=== PATIENT | female | born 1985 | race Caucasian/White ===

== ENCOUNTER 2018-09-10 17:21 | Outpatient (CLI) | payer OTHER | END 2018-09-10 17:27 | disposition home or self-care (01) | LOC: LAB 17:21 | DX: D68.0 Von Willebrand disease (principal); D50.0 Iron deficiency anemia secondary to blood loss (chronic); E44.1 Mild protein-calorie malnutrition; D51.1 Vitamin B12 deficiency anemia due to selective vitamin B12 malabsorption with proteinuria; D51.3 Other dietary vitamin B12 deficiency anemia; D68.8 Other specified coagulation defects; N93.8 Other specified abnormal uterine and vaginal bleeding; R94.5 Abnormal results of liver function studies; D50.8 Other iron deficiency anemias; D51.8 Other vitamin B12 deficiency anemias; I10 Essential (primary) hypertension ==

== ENCOUNTER → 2019-01-17 07:00 | Outpatient (CLI) | payer OTHER | END | disposition home or self-care (01) | LOC: LAB 07:00 | DX: D68.0 Von Willebrand disease (principal); D50.0 Iron deficiency anemia secondary to blood loss (chronic); E44.1 Mild protein-calorie malnutrition; D51.1 Vitamin B12 deficiency anemia due to selective vitamin B12 malabsorption with proteinuria; D68.8 Other specified coagulation defects; N93.8 Other specified abnormal uterine and vaginal bleeding; R94.5 Abnormal results of liver function studies ==